=== PATIENT | female | born 1970 | race Caucasian/White ===

== ENCOUNTER → 2022-09-01 11:43 | Outpatient (CLI) | payer OTHER, SELFPAY ==
--- NOTE | ~2022-09-01 | XR_ITS ---
EXAMINATION: XR lumbar spine min 4V DATE: 09/01/2022 12:10 INDICATION: Low back pain, unspecified. TECHNIQUE: 5 views of lumbar spine were obtained. COMPARISON: None. FINDINGS: Bone alignment is normal. Vertebral body heights are normal. There are endplate osteophytes at multiple levels. Intervertebral disc heights are normal. There is multilevel mild facet joint ost eoarthritis. IMPRESSION: 1. Mild lumbar spondylosis. Reviewed, dictated and finalized at location E. IMPRESSION: 1. Mild lumbar spondylosis.
== END ==
PROVIDERS: PCP Nurse Practitioner Family; Visit Provider Nurse Practitioner Family
DX: M47.816 Spondylosis without myelopathy or radiculopathy, lumbar region (principal)
CPT/HCPCS: 72110

== ENCOUNTER 2023-04-12 07:22 | Day surgery (SDC) | payer OTHER, SELFPAY ==
[2023-03-21 13:20] VITALS: BMI 25.7
[2023-03-27 09:13] VITALS: BMI 25.7
--- NOTE | 2023-04-12 07:34 | WPDANESEPPF ---
Anes - Initial Pre Proc Eval Procedure: Operation Date: 04/12/23 09:30 Proposed Procedures p Screening Colonoscopy - Rustam Braswell MD Date/Time: 04/12/23 07:34 Surgeon: Rustam Braswell MD Pre Op Diagnosis: Neoplasm Screening Patient Data Age: 52 Gender: F Height: 1.63 m Weight: 68 kg Allergies Allergy/AdvReac Type Severity Reaction Status Date / Time No Known Allergies Allergy Unverified 04/12/23 08:20 Home Medications Medication Instructions Recorded Confirmed Type omega-3 fatty acids 1,000 mg 2,000 mg PO DAILY 07/15/22 03/27/23 History capsule quetiapine 50 mg tablet (Seroquel) 25 - 50 mg PO QHS #90 tabs 09/08/22 03/27/23 Rx cyclobenzaprine 10 mg tablet 5 - 10 mg PO TID PRN muscle spasm 01/31/23 03/27/23 Rx #60 tabs gabapentin 100 mg capsule 200 mg PO TID #180 caps 01/31/23 03/27/23 Rx lidocaine 5 % topical patch 1 patch topical DAILY #30 ea 01/31/23 03/27/23 Rx (Lidoderm) naproxen 500 mg tablet 500 mg PO BID PRN pain #60 tabs 01/31/23 03/27/23 Rx sodium,potassium,mag sulfates 17.5 See Rx Instructions PO .COMPLEX 03/21/23 04/12/23 Rx gram-3.13 gram-1.6 gram oral soln #354 mL (Suprep Bowel Prep Kit) biotin 10,000 mcg chewable tablet 1 mcg PO DAILY 03/27/23 04/12/23 History (Hair, Skin and Nails (biotin)) multivitamin-ferrous 1 tablet PO DAILY 03/27/23 03/27/23 History fumarate-folic acid 18 mg-400 mcg tablet vitamin B complex 1 tablet PO DAILY 03/27/23 04/12/23 History Patient hx anesthesia problems: none Family hx anesthesia problems: none Results Review: All pre-operative results and documents have been reviewed as part of the pre-operative evaluation. [facility] Past Medical History Medical History (Updated 04/12/23 @ 08:40 by Arvind Sanford DO) Allergies Anxiety BMI 25.0-25.9,adult BMI 26.0-26.9,adult Depression Elevated fasting glucose Encounter to establish care Insomnia Low back pain radiating to left leg Screening for breast cancer Screening for colon cancer Seasonal allergies Surgical History Surgical History H/O: hysterectomy Hx of appendectomy Hx of cholecystectomy Family History Family History Grandparent Depression Heart disease Thyroid disease Sibling Depression Father Hypertension Mother Lupus Social History Social History Smoking status: Never smoker Alcohol intake: never Substance use: never Substance use type: does not use Lack of Transportation: No Lack of Food: Never True Current Housing: I Have Housing Concerned About Future Housing: No Difficulty Paying Gas/Electric Bills: No Difficulty Paying for Meds: No Currently Unemployed: No Education: High School Diploma/GED Difficulty w/ Childcare or Family Care: No Living arrangements: with family Spiritual care concerns: No Anes - Eval Final PreProcedure Day of Procedure 04/12/23 07:34 Patient weight: overweight Heart: regular rate and rhythm Lungs: clear to auscultation Airway: Mallampati scale class II Neurological: alert and oriented Last oral intake: >/= 8 hours ASA classification: II Emergent: no Anesthetic plan: proceed Anesthesia type and monitoring: general GIVS and standard monitoring Results Review: All pre-operative results and documents have been reviewed as part of the pre-operative evaluation. Informed Consent: The patient's anesthetic plan and its attendant risks and benefits were discussed with the patient/family/POA. Questions were solicited and answers provided to the satisfaction of the patient/family/POA.
[2023-04-12 08:05] VITALS: BP 106/78; PULSE 80; RESP 20; TEMP 37.3; O2SAT 100
[2023-04-12] MEDS: LACTATED RINGERS 1,000 ML 150 ML IV CONT (08:30)
--- NOTE | 2023-04-12 08:53 | PM.HPGS ---
History of Present Illness History of Present Illness Consent: Risks, benefits, and alternatives have been discussed and questions answered. Patient agrees to proceed with procedure. Chief complaint: Neoplasm Screening Narrative: Alyse Isabel is a 52 year old female Presents for screening colonoscopy. Patient's current weight appetite and bowel movements are normal. She denies abdominal pain. Patient has had no bleeding. Family history noncontributory. Review of Systems Review of Systems: Review of Systems noncontributory. [facility] Past Medical History Medical History (Updated 04/12/23 @ 08:40 by Arvind Sanford, ) Allergies Anxiety BMI 25.0-25.9,adult BMI 26.0-26.9,adult Depression Elevated fasting glucose Encounter to establish care Insomnia Low back pain radiating to left leg Screening for breast cancer Screening for colon cancer Seasonal allergies Surgical History Surgical History H/O: hysterectomy Hx of appendectomy Hx of cholecystectomy Family History Family History Grandparent Depression Heart disease Thyroid disease Sibling Depression Father Hypertension Mother Lupus Social History Social History Smoking status: Never smoker Alcohol intake: never Substance use: never Substance use type: does not use Lack of Transportation: No Lack of Food: Never True Current Housing: I Have Housing Concerned About Future Housing: No Difficulty Paying Gas/Electric Bills: No Difficulty Paying for Meds: No Currently Unemployed: No Education: High School Diploma/GED Difficulty w/ Childcare or Family Care: No Living arrangements: with family Spiritual care concerns: No Meds Home Medications and Allergies Home Medications Medication Instructions Recorded Confirmed Type omega-3 fatty acids 1,000 mg 2,000 mg PO DAILY 07/15/22 03/27/23 History capsule quetiapine 50 mg tablet (Seroquel) 25 - 50 mg PO QHS #90 tabs 09/08/22 03/27/23 Rx cyclobenzaprine 10 mg tablet 5 - 10 mg PO TID PRN muscle spasm 01/31/23 03/27/23 Rx #60 tabs gabapentin 100 mg capsule 200 mg PO TID #180 caps 01/31/23 03/27/23 Rx lidocaine 5 % topical patch 1 patch topical DAILY #30 ea 01/31/23 03/27/23 Rx (Lidoderm) naproxen 500 mg tablet 500 mg PO BID PRN pain #60 tabs 01/31/23 03/27/23 Rx sodium,potassium,mag sulfates 17.5 See Rx Instructions PO .COMPLEX 03/21/23 04/12/23 Rx gram-3.13 gram-1.6 gram oral soln #354 mL (Suprep Bowel Prep Kit) biotin 10,000 mcg chewable tablet 1 mcg PO DAILY 03/27/23 04/12/23 History (Hair, Skin and Nails (biotin)) multivitamin-ferrous 1 tablet PO DAILY 03/27/23 03/27/23 History fumarate-folic acid 18 mg-400 mcg tablet vitamin B complex 1 tablet PO DAILY 03/27/23 04/12/23 History Allergies Allergy/AdvReac Type Severity Reaction Status Date / Time No Known Allergies Allergy Unverified 04/12/23 08:20 Vital Signs Vital Signs - 24 hr 04/12/23 08:05 Temperature 99.2 F Pulse Rate 80 Respiratory Rate 20 Blood Pressure 106/78 Pulse Oximetry 100 Oxygen Delivery Room Air Exam Narrative: Physical exam reveals patient to be alert. Vital signs stable. HEENT exam is unremarkable. Is anicteric. Lungs was are clear to auscultation and percussion. Heart is without murmur or extra sounds. Abdomen bowel sounds are present soft nontender with no organomegaly. Digital external rectal exam normal. Assessment and Plan Assessment and plan (1) Screening for colon cancer: Code(s): Z12.11 - Encounter for screening for malignant neoplasm of colon Status: Acute Assessment and Plan: screening colonoscopy to be performed today.
[2023-04-12 09:50] VITALS: BP 111/63; PULSE 82; RESP 16; O2SAT 100
[2023-04-12 10:00] VITALS: BP 92/71; PULSE 80; RESP 16; O2SAT 100
[2023-04-12 10:10] VITALS: BP 102/71; PULSE 74; RESP 16; O2SAT 100
--- NOTE | 2023-04-12 11:14 | WPDANESPN ---
Anes - Prog Note Post-Op Date/Time: 04/12/23 11:14 Cardiovascular status: normal Respiratory status: normal Airway patency: baseline Mental status: baseline Post-Op hydration status: normal Vital Signs: Last Vital Signs Temp 37.3 C 04/12/23 08:05 Pulse 74 04/12/23 10:10 Resp 16 04/12/23 10:10 BP 102/71 04/12/23 10:10 Pulse Ox 100 04/12/23 10:10 O2 Del Method Room Air 04/12/23 10:10 Pain Score (VAS): 0 I/O: Intake & Output 04/11/23 04/12/23 04/12/23 23:59 07:59 15:59 Intake Total 350 Balance 350 Post-procedural complaints: none Patient Feedback: Patient satisfied with anesthetic care. Other Findings: Patient vital signs back to baseline. Patient denies nausea and vomiting. Patient's pain under control. Patient OK for discharge.
== END 2023-04-12 10:20 | disposition home or self-care (01) ==
PROVIDERS: PCP Nurse Practitioner Family; Visit Provider Internal Medicine Gastroenterology
PROC: 0DJD8ZZ Inspection of Lower Intestinal Tract, Via Natural or Artificial Opening Endoscopic (ICD-10-PCS; CPT 45378; principal; 2023-04-12 09:30)
DX: Z12.11 Encounter for screening for malignant neoplasm of colon (principal)
CPT/HCPCS: 45378

== ENCOUNTER → 2023-12-08 10:36 | Outpatient (CLI) | payer BC, SELFPAY ==
--- NOTE | ~2023-12-08 | XR_ITS ---
Left Hand Technique: PA, oblique, and lateral views were obtained. Clinical History: Pain Findings: No acute fracture or dislocation is seen. Osseous alignment is anatomic. Joint spaces are p reserved. Soft tissues are unremarkable. Impression: Unremarkable left hand. Reviewed, dictated and finalized at location M. Impression: Unremarkable left hand.
--- NOTE | ~2023-12-08 | XR_ITS ---
Right Hand Technique: PA, oblique, and lateral views were obtained. Clinical History: Pain Findings: No acute fracture or dislocation is seen. Osseous alignment is anatomic. Joint spaces are p reserved. Soft tissues are unremarkable. Impression: Unremarkable right hand. Reviewed, dictated and finalized at location M. Impression: Unremarkable right hand.
== END ==
LOC: EXPTRAD 10:39
PROVIDERS: PCP Nurse Practitioner Family; Visit Provider Nurse Practitioner Family
DX: M79.641 Pain in right hand (principal); M79.642 Pain in left hand
CPT/HCPCS: 73130

== ENCOUNTER 2024-02-19 15:09 | Outpatient (CLI) | payer BC, SELFPAY ==
--- NOTE | ~2024-02-19 | MM_ITS ---
EXAMINATION: MM screening ayden BI w luis alberto HISTORY: Screening mammogram TECHNIQUE: Craniocaudal and mediolateral oblique 3-D tomosynthesis images were obtained and synthetic 2-D images were generated. CAD analysis was submitted and interpreted. COMPARISON: No prior mammogram is available for comparison at this institution. BREAST PARENCHYMAL COMPOSITION:Not Dense. There are scattered areas of fibroglandular density. FINDINGS: There is focal asymmetry at the upper right breast. No parenchymal abnormality the left christine ast seen. No suspicious microcalcifications in either breast. IMPRESSION: Focal asymmetry right breast. Although likely summation artifact, spot compression views, true later al view, and possibly ultrasound, are recommended for further evaluation at this time. BI-RADS Category 0: Incomplete: Needs additional imaging evaluation. Reviewed, dictated and finalized at [facility]. R IMPRESSION: Focal asymmetry right breast. Although likely summation artifact, spot dawson radha views, true lateral view, and possibly ultrasound, are recommended for fur ther evaluation at this time. BI-RADS Category 0: Incomplete: Needs additional imaging evaluation.
== END 2024-02-19 15:10 | disposition home or self-care (01) ==
LOC: MICIMG 15:10
PROVIDERS: PCP Nurse Practitioner Family; Visit Provider Nurse Practitioner Family
DX: Z12.31 Encounter for screening mammogram for malignant neoplasm of breast (principal); N64.89 Other specified disorders of breast
CPT/HCPCS: 77063; 77067

== ENCOUNTER 2024-03-13 09:15 | Outpatient (CLI) | payer BC, SELFPAY ==
--- NOTE | ~2024-03-13 | MMUS_ITS ---
EXAMINATION: MM diagnostic ayden RT w luis alberto, US breast RT limited HISTORY: Follow-up right breast asymmetry TECHNIQUE: Additional 3-D tomosynthesis images of the right breast were performed and synthetic 2-D i mages were generated. CAD analysis was submitted and interpreted. High resolution Limited right breas t ultrasound was performed. COMPARISON: 02/19/2024 BREAST PARENCHYMAL COMPOSITION: Not dense: There are scattered areas of fibroglandular density. FINDINGS: MAMMOGRAPHIC FINDINGS: The area of asymmetry superiorly in the right breast is less apparent with spot compression views and is not identified on CC view. ULTRASOUND: Limited right breast ultrasound: Normal heterogeneous echotexture without focal solid or cystic mass. IMPRESSION: 1. Probable benign focal asymmetry superiorly in the right breast without sonographic correlate. 2. Recommend 6 month follow-up diagnostic right mammogram BI-RADS category 3, probably benign findings. Reviewed, dictated and finalized at location B. CAL TECHNICIAN IMPRESSION: 1. Probable benign focal asymmetry superiorly in the right breast without sonog raphic correlate. 2. Recommend 6 month follow-up diagnostic right mammogram BI-RADS category 3, probably benign findings.
== END 2024-03-13 09:16 | disposition home or self-care (01) ==
LOC: MICIMG 09:15
PROVIDERS: PCP Nurse Practitioner Family; Visit Provider Nurse Practitioner Family
DX: R92.8 Other abnormal and inconclusive findings on diagnostic imaging of breast (principal)
CPT/HCPCS: 76642; 77061; 77065; G0279